=== PATIENT | female | born 1950 | race Asian ===

== ENCOUNTER 2019-10-13 06:52 | Emergency (ER) | payer OTHER, BC ==
[~2019-10-13] VITALS: Ht 170.2 cm; Wt 63.5 kg
[2019-10-13 06:58] VITALS: Ht 170.2 cm; Wt 63.5 kg
[2019-10-13 07:56] LABS: BASOPHIL % 0.2 % (0-2); RED CELL DISTRIBUTION WIDTH 12.7 % (11.5-14.5)
[2019-10-13 07:58] LABS: PLATELET COUNT 106 x10^3mcL (130-400)
[2019-10-13 08:08] LABS: CALCIUM 8.9 mg/dL (8.5-10.1); CARBON DIOXIDE 27.4 mmol/L (21-32); CREATININE SERUM 1.1 mg/dL (0.6-1.0); POTASSIUM SERUM 3.3 mmol/L (3.5-5.1)
[2019-10-13 08:12] LABS: BILIRUBIN TOTAL 0.5 mg/dL (0.20-1.00); C REACTIVE PROTEIN 4.3 mg/dL (<=0.9); TOTAL PROTEIN, SERUM 6.6 g/dL (6.4-8.2)
[2019-10-13 08:20] LABS: ALBUMIN 3.2 g/dL (3.4-5.0)
[2019-10-13 10:33] VITALS: BP 111/74
== END 2019-10-13 10:33 | disposition home or self-care (01) ==
LOC: ED 06:52
PROVIDERS: Specialist
DX: R50.9 Fever, unspecified (principal); R07.89 Other chest pain; E78.00 Pure hypercholesterolemia, unspecified; Z03.818 Encounter for observation for suspected exposure to other biological agents ruled out; Z98.890 Other specified postprocedural states
CPT/HCPCS: 36415; 87804; Q0092

== ENCOUNTER 2020-04-06 14:19 | Emergency (ER) | payer OTHER, BC ==
[~2020-04-06] VITALS: Ht 175.3 cm; Wt 55.3 kg
[2020-04-06 14:30] VITALS: Ht 175.3 cm; Wt 55.3 kg
[2020-04-06 15:20] LABS: BASOPHIL % 0.7 % (0-2)
[2020-04-06 15:23] LABS: PLATELET COUNT 73 x10^3mcL (130-400); RED CELL DISTRIBUTION WIDTH 15.5 % (11.5-14.5)
[2020-04-06 15:26] LABS: CARBON DIOXIDE 25.3 mmol/L (21-32); CREATININE SERUM 1.5 mg/dL (0.6-1.0)
[2020-04-06 15:30] LABS: ALBUMIN 3.5 g/dL (3.4-5.0); BILIRUBIN TOTAL 0.76 mg/dL (0.20-1.00); TOTAL PROTEIN, SERUM 7.3 g/dL (6.4-8.2)
[2020-04-06 17:23] VITALS: BP 131/67
== END 2020-04-06 17:20 | disposition home or self-care (01) ==
LOC: ED 14:19
PROVIDERS: Emergency Medicine
DX: R07.89 Other chest pain (principal); R11.2 Nausea with vomiting, unspecified
CPT/HCPCS: J1610; J2060; J7030